=== PATIENT | female | born 2000 | race Caucasian/White ===

== ENCOUNTER 2019-06-24 17:30 | Inpatient (IN) ==
[2019-06-24 18:37] LABS: Basophils # (auto) 0.02 K/uL (0-0.2); Basophils % (auto) 0.3 %; Eosinophils # (auto) 0.02 K/uL (0-0.5); Eosinophils % (auto) 0.3 %; Hematocrit (blood only) 42.5 % (37-47); Hemoglobin 14.4 g/dL (12.0-16.0); Immature Granulocytes # (auto) 0.01 K/uL (0.00-0.02); Immature Granulocytes % (auto) 0.1 %; Lymphocytes # (auto) 2.55 K/uL (1.2-3.4); Mean Corpuscular Hemoglobin 31.5 pg (25-34); Mean Corpuscular Hgb Conc 33.9 g/dL (32-36); Mean Platelet Volume 9.8 fL (7.4-10.4); Monocytes # (auto) 0.38 K/uL (0.11-0.59); Monocytes % (auto) 5.5 %; Neutrophils # (auto) 3.92 K/uL (1.4-6.5); Neutrophils % (auto) 56.8 %; Platelet Count 294 K/uL (130-400); RDW Coefficient of Variation 12.8 % (11.5-14.5); RDW Standard Deviation 43.5 fL (36.4-46.3); Red Blood Count 4.57 M/uL (4.2-5.4)
[2019-06-24 18:48] LABS: Albumin Level 4.5 gm/dl (3.4-5.0); BUN Creatinine Ratio 11.9 (10-20); Calcium 9.7 mg/dl (8.5-10.1); Creatinine Clr Calc Pharmacy 78.3 ml/min; Est GFR (African American) 100.5; Est GFR (Non-African American) 86.7; Potassium 3.7 mmol/L (3.5-5.1)
[2019-06-24 18:51] LABS: Appearance Urine Clear (Clear); Bacteria Urine Automated Negative (Negative); Bilirubin Urine Negative (Negative); Blood Urine Negative (Negative); Color Urine Dark Yellow; Epithelial Cell Urine Auto >30 /lpf (0-5); Glucose Urine UA Negative (Negative); Ketones Urine Trace (Negative); Leukocyte Esterase Urine Trace (Negative); Nitrite Urine Negative (Negative); Protein Urine Negative (Negative); Specific Gravity Urine 1.027 (1.000-1.030); Urobilinogen Urine Negative (Negative)
[2019-06-24 18:58] LABS: Albumin Globulin Ratio 1.2 (0.9-2); Bilirubin,Total 0.7 mg/dl (0.2-1); Globulin 3.8 gm/dl (2.5-4.0); Thyroid Stimulating Hormone 0.483 uIu/ml (0.300-4.500); Total Protein 8.3 gm/dl (6.4-8.2)
[2019-06-24 19:01] LABS: Acetaminophen < 2 ug/ml (10-30); Salicylate < 1.7 mg/dl (2.8-20)
[2019-06-24 19:25] LABS: Amphetamines+Metham, Urine Neg (Neg); Barbiturates, Urine Neg (Neg); Benzodiazepine, Urine Neg (Neg); Cocaine, Urine Neg (Neg); MDMA (Ecstacy), Urine Neg (Neg); Methadone, Urine Neg (Neg); Opiate, Urine Neg (Neg); Phencyclidine, Urine Neg (Neg)
--- NOTE | 2019-06-24 21:33 | Emergency Department Note ---
Entered by Nuzhat Sinclair acting as a scribe for Mitch Brown DO History of Present Illness General Chief complaint: Mental Health Evaluation Stated complaint: MENTAL HEALTH EVAL Source: patient History of Present Illness Onset (ago): day(s) (4) Location: head (general) Pain Consistency: + constant Quality: + other (suicidal ideations) Associated symptoms: + denies other symptoms (homicidal ideations, auditory and visual hallucnations), + loss of appetite and + other (trouble sleeping) The patient is a 19 year old female who presents to the Emergency Room with complaints of constant suicidal ideations beginning 4 days ago. The patient denies a plan and states she has been trying to refrain from thinking about it as she is scared she may then carry through with the plan. She notes she is scared to be alone. The patient reports loss of appetite and trouble sleeping. She notes she missed classes yesterday.She reports previously suicidal ideations, but never to this extent. She denies homicidal ideations, and a uditory and visual hallucinations. She states she was at [facility] and was told to come to the ER by the crisis counselor. The patient reports a history of depression and anxiety for the past 5 years. She states she has been taking Zoloft. She notes she has been off of the medication due to the side effects she was experiencing. She notes she has an IUD. Home Medications Home Medications Medication Instructions Recorded Confirmed Type No Known Home Medications 06/24/19 06/24/19 History Allergies Allergy/AdvReac Type Severity Reaction Status Date / Time Sulfa (Sulfonamide Allergy Hives Verified 06/24/19 18:40 Antibiotics) Past Med/Surg History Medical History Anxiety and depression Surgical History No pertinent past surgical history Family History Other No pertinent family history Social History Preferred Language: Czech Communication Ability: Effective Beliefs That Will Affect Care: None Feels Safe at Home: Yes Smoking Status: Never smoker Review of Systems See HPI for pertinent positives & negatives. and A total of 10 systems reviewed and were otherwise negative Physical Exam Vital Signs Vital Signs - 24 hr 02/11/20 17:31 06/24/19 19:34 Temperature 36.9 C Temperature Source Oral Pulse Rate 91 H Pulse Rate [Finger] 86 Respiratory Rate 18 16 Respiratory Effort / Characteristics Non-Labored Respiratory Depth Normal Respiratory Pattern Regular Blood Pressure 133/73 Blood Pressure [Left Arm] 127/74 Blood Pressure Mean 93 Blood Pressure Mean [Left Arm] 91 Blood Pressure Position Sitting Blood Pressure Position [Left Arm] Sitting Pulse Oximetry 100 100 Oxygen Delivery Method Room Air Sepsis Recent Fever Within 48 Hours No Sepsis New/Unexplained Change in Mental Status No Sepsis Action Taken by Nursing No Action Required GENERAL: sitting up in bed, wearing blue scrubs, no acute distress, non-toxic EYE EXAM: normal conjunctiva OROPHARYNX: no exudate, no erythema, lips, buccal mucosa, and tongue normal and mucous membranes are moist NECK: supple, no nuchal rigidity, no adenopathy, non-tender LUNGS: Clear to auscultation. Normal chest wall mechanics HEART: no murmurs, S1 normal and S2 normal ABDOMEN: abdomen soft, non-tender, normo-active bowel sounds, no masses, no rebound or guarding. BACK: Back is symmetrical on inspection and there is no deformity, no midline tenderness, no CVA tenderness. SKIN: no rashes and no bruising UPPER EXTREMITIES: upper extremities are grossly normal. LOWER EXTREMITIES: No pitting edema. NEURO EXAM: Normal sensorium, cranial nerves II-XII grossly intact, normal speech, no gross weakness of arms, no gross weakness of legs. PSYCH: Admits to SI; states she is uncomfortable to be alone; denies any plan Course Course ED COURSE: Vital signs were reviewed and showed to be hypertensive situationally. The patients medical record was reviewed The above diagnostic studies were performed and reviewed. ED treatments and interventions as stated above. 1750: The patient was evaluated in room B10. A complete history and physical examination was performed. 0: Upon reevaluation, the patient is resting comfortably. I discussed my findings with the patient and she understands and agrees with the treatment plan. Based on the patients age, coexisting illnesses, exam and lab findings the decision to treat as an inpatient was made. The patient was transferred to [address] [place] [address]. The patient remained stable while under my care. The patient will be evaluated for further management. Administered Medications Hydroxyzine HCl (Vistaril) 50 mg PO HSZ PRN PRN Reason: Insomnia Stop: 07/24/19 21:49 Last Admin: 06/24/19 23:05 Dose: 50 mg Documented by: [id number] Medical Decision Making Differential Diagnosis Differential diagnoses considered include mood disorder, infection, hypoglycemia, electrolyte abnormalities, cardiac sources, intracerebral event, toxicologic, neurologic, as well as others. Medical Records Attestation: I reviewed the patient's medical records. Home Medications Current Medication List: was personally reviewed by me Laboratory Data Attestation: I reviewed the patient's lab results. Result diagrams: 06/24/19 18:13 06/24/19 18:13 Lab Results 06/24/19 06/24/19 06/24/19 Range/Units 18:13 18:13 18:13 WBC 6.90 (4.8-10.8) K/uL RBC 4.57 (4.2-5.4) M/uL Hgb 14.4 (12.0-16.0) g/dL Hct 42.5 (37-47) % MCV 93.0 (80-100) fL MCH 31.5 (25-34) pg MCHC 33.9 (32-36) g/dL RDW Std Deviation 43.5 (36.4-46.3) fL RDW Coeff of Javier 12.8 (11.5-14.5) % Plt Count 294 (130-400) K/uL MPV 9.8 (7.4-10.4) fL Immature Gran % (Auto) 0.1 % Neut % (Auto) 56.8 % Lymph % (Auto) 37.0 % [place] % (Auto) 5.5 % Eos % (Auto) 0.3 % Baso % (Auto) 0.3 % Immature Gran # (Auto) 0.01 (0.00-0.02) K/uL Neut # (Auto) 3.92 (1.4-6.5) K/uL Lymph # (Auto) 2.55 (1.2-3.4) K/uL [place] # (Auto) 0.38 (0.11-0.59) K/uL Eos # (Auto) 0.02 (0-0.5) K/uL Baso # (Auto) 0.02 (0-0.2) K/uL Sodium 136 (136-145) mmol/L Potassium 3.7 (3.5-5.1) mmol/L Chloride 106 (98-107) mmol/L Carbon Dioxide 24 (21-32) mmol/L Anion Gap 6.0 (3-11) BUN 11 (7-18) mg/dl Creatinine 0.94 (0.6-1.2) mg/dl Est Cr Clr Drug Dosing 78.3 ml/min Est GFR ( Amer) 100.5 Est GFR (Non-Af Amer) 86.7 BUN/Creatinine Ratio 11.9 (10-20) Glucose 81 (70-99) mg/dl Calcium 9.7 (8.5-10.1) mg/dl Total Bilirubin 0.7 (0.2-1) mg/dl AST 10 L (15-37) U/L ALT 12 (12-78) U/L Alkaline Phosphatase 66 (45-117) U/L Total Protein 8.3 H (6.4-8.2) gm/dl Albumin 4.5 (3.4-5.0) gm/dl Globulin 3.8 (2.5-4.0) gm/dl Albumin/Globulin Ratio 1.2 (0.9-2) TSH 0.483 (0.300-4.500) uIu/ml Urine Color Urine Appearance (Clear) Urine pH (4.5-7.5) Ur Specific [place] (1.000-1.030) Urine Protein (Negative) Urine Glucose (UA) (Negative) Urine Ketones (Negative) Urine Blood (Negative) Urine Nitrite (Negative) Urine Bilirubin (Negative) Urine Urobilinogen (Negative) Ur Leukocyte Esterase (Negative) Urine WBC (Auto) (0-5) /hpf Urine RBC (Auto) (0-4) /hpf U Hyaline Cast (Auto) (0-5) /lpf U Epithel Cells (Auto) (0-5) /lpf Urine Bacteria (Auto) (Negative) Salicylates < 1.7 L (2.8-20) mg/dl Urine Opiates Screen (Neg) Ur Methadone, Qual (Neg) Acetaminophen < 2 L (10-30) ug/ml Urine Barbiturates (Neg) Ur Phencyclidine (PCP) (Neg) U Amphetamin/Meth Scrn (Neg) MDMA (Ecstasy) Screen (Neg) U Benzodiazepines Scrn (Neg) Ur Cocaine Metabolite (Neg) U Marijuana (THC) Screen (Neg) Ethyl Alcohol mg/dL (0-3) mg/dl 06/24/19 06/24/19 06/24/19 Range/Units 18:13 18:15 18:15 WBC (4.8-10.8) K/uL RBC (4.2-5.4) M/uL Hgb (12.0-16.0) g/dL Hct (37-47) % MCV (80-100) fL MCH (25-34) pg MCHC (32-36) g/dL RDW Std Deviation (36.4-46.3) fL RDW Coeff of Javier (11.5-14.5) % Plt Count (130-400) K/uL MPV (7.4-10.4) fL Immature Gran % (Auto) % Neut % (Auto) % Lymph % (Auto) % [place] % (Auto) % Eos % (Auto) % Baso % (Auto) % Immature Gran # (Auto) (0.00-0.02) K/uL Neut # (Auto) (1.4-6.5) K/uL Lymph # (Auto) (1.2-3.4) K/uL [place] # (Auto) (0.11-0.59) K/uL Eos # (Auto) (0-0.5) K/uL Baso # (Auto) (0-0.2) K/uL Sodium (136-145) mmol/L Potassium (3.5-5.1) mmol/L Chloride (98-107) mmol/L Carbon Dioxide (21-32) mmol/L Anion Gap (3-11) BUN (7-18) mg/dl Creatinine (0.6-1.2) mg/dl Est Cr Clr Drug Dosing ml/min Est GFR ( Amer) Est GFR (Non-Af Amer) BUN/Creatinine Ratio (10-20) Glucose (70-99) mg/dl Calcium (8.5-10.1) mg/dl Total Bilirubin (0.2-1) mg/dl AST (15-37) U/L ALT (12-78) U/L Alkaline Phosphatase (45-117) U/L Total Protein (6.4-8.2) gm/dl Albumin (3.4-5.0) gm/dl Globulin (2.5-4.0) gm/dl Albumin/Globulin Ratio (0.9-2) TSH (0.300-4.500) uIu/ml Urine Color Dark Yellow Urine Appearance Clear (Clear) Urine pH 6.0 (4.5-7.5) Ur Specific [place] 1.027 (1.000-1.030) Urine Protein Negative (Negative) Urine Glucose (UA) Negative (Negative) Urine Ketones Trace H (Negative) Urine Blood Negative (Negative) Urine Nitrite Negative (Negative) Urine Bilirubin Negative (Negative) Urine Urobilinogen Negative (Negative) Ur Leukocyte Esterase Trace H (Negative) Urine WBC (Auto) 5-10 H (0-5) /hpf Urine RBC (Auto) 5-10 H (0-4) /hpf U Hyaline Cast (Auto) 5-10 H (0-5) /lpf U Epithel Cells (Auto) >30 H (0-5) /lpf Urine Bacteria (Auto) Negative (Negative) Salicylates (2.8-20) mg/dl Urine Opiates Screen Neg (Neg) Ur Methadone, Qual Neg (Neg) Acetaminophen (10-30) ug/ml Urine Barbiturates Neg (Neg) Ur Phencyclidine (PCP) Neg (Neg) U Amphetamin/Meth Scrn Neg (Neg) MDMA (Ecstasy) Screen Neg (Neg) U Benzodiazepines Scrn Neg (Neg) Ur Cocaine Metabolite Neg (Neg) U Marijuana (THC) Screen Pos H (Neg) Ethyl Alcohol mg/dL < 3.0 (0-3) mg/dl Blood Pressure Blood Pressure Findings: Elevated blood pressure Blood Pressure Disposition: further management by hospitalist DANICA Narrative Patient is a 19-year-old female who presents the ER notes that she has been depressed and anxious and having suicidal thoughts. She notes that she now feels unsafe at home. She was seen and evaluated by [facility] and referred and here for further evaluation and treatment. She notes that she refuses the think about a plan because if she does come up with one she knows she will do it. Labs show no significant leukocytosis or anemia. BMP along with LFTs bilirubin and TSH was unremarkable. UA was contaminated with multiple epithelial cells and consequently we will not treat at this time. Tox was negative. Marijuana was positive. Alcohol was negative. Patient was evaluated by her psychiatric direct care worker. She was evaluated by [facility] and was admitted for further evaluation. Impression & Plan Depression, Suicidal thoughts, Mood disorder Discharge Plan Visit Data *Final* Discharge Date/Time: 06/24/19 22:19 Chief Complaint: Mental Health Evaluation Stated Complaint: MENTAL HEALTH EVAL ED Provider: Mitch Brown Discharge Problem: Depression, Suicidal thoughts, Mood disorder Patient Disposition: Being Evaluated by Hospitalist Discharge Instructions Interventions: ED Discharge Assessment Last Done: 06/24/19 22:19 Discharge Problem: Depression Qualifiers: Depression Type: unspecified Qualified Code(s): F32.9 - Major depressive disorder, single episode, unspecified The scribe's documentation has been prepared under my direction and personally reviewed by me in its entirety. I confirm that the note above accurately reflects all work, treatment, procedures, and medical decision making performed by me.
[2019-06-24] MEDS ORDERED: SODIUM CHLORIDE 0.65% NA SOLN 45 ML (OCEAN) PRN (21:50)
[2019-06-24] MEDS ORDERED: BISMUTH SUBSALICYLATE PER ML OMNICELL CHARGE PO PRN (21:50)
[2019-06-24] MEDS ORDERED: ALUMINUM/MAGNESIUM SUSP 30 ML UDC PO PRN (21:50)
[2019-06-24] MEDS ORDERED: MAGNESIUM HYDROXIDE SUSP 30 ML UDC PO PRN (21:50)
[2019-06-24] MEDS ORDERED: ACETAMINOPHEN 325 MG TAB PO PRN (21:50)
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
[2019-06-25] MEDS: VENLAFAXINE HCL XR 37.5 MG CAPXR PO SCH (12:15)
[2019-06-26] MEDS: VENLAFAXINE HCL XR 37.5 MG CAPXR PO SCH (08:53)
--- NOTE | 2019-06-26 13:40 | Psychiatric Progress Note ---
Date of Service June 26, 2019 Impression / Recommendations Impression 19-year-old female admitted voluntarily for inpatient psychiatric treatment on 06/24/2019 after presenting to the ED with worsening depressive symptoms and suicidal ideation. Pt was referred by [facility], after she was seen for a crisis appointment. Pt was unable to contract for safety both during that visit and during mental health evaluation in the ED and was therefore referred for inpatient psychiatric hospitalization. Pt reports a history of depression and anxiety, but denies prior psychiatric hospitalization or suicide attempts. Working diagnoses include major depressive disorder, dysthymic disorder, bipolar II disorder, PTSD, and personality disorder. Will give diagnosis of depression NOS at this time and attempt to further clarify formal diagnosis. Pt does meet criteria for generalized anxiety disorder. Pt was agreeable with a trial of venlafaxine ER with titration as tolerated. Recommended monitoring for activation, flight of ideas, and increased goal directed behavior. During her hospitalization, patient will be encouraged to participate in group and recreational programming. Family meeting with mother tomorrow to discuss discharge and safety planning. Pt still requires outpatient psychiatric providers to ensure continued treatment on an outpatient basis after discharge. Inpatient psychiatric treatment is medically necessary, as patient is at risk of suicide if she is discharged prematurely without adequate mitigation of risk factors. (1) Suicidal thoughts: 06/25 - Admitted to a locked inpatient behavioral health unit, on q15 minute safety checks - Encourage medication initiation/adjustments as indicated - Encourage participation in group and recreational therapies - Gather collateral information from outpatient providers - Suggest family meeting to involve outpatient supports in safety planning - Arrange appropriate aftercare 06/26 - Pt reporting improvement in SI, but denies resolution (2) Depression: 06/25 - Will work with diagnosis of depression NOS - differential includes MDD, dysthymic disorder, bipolar II disorder, PTSD, personality disorder, and other possible mood disorder. - Attempt to gather collateral information from patient and outpatient supports to further clarify diagnosis - Reviewed risks, benefits, and potential side effects of antidepressant medications. Given physical and sexual side effects reported with two previous trials of SSRIs (fluoxetine and sertraline), we discussed trial of an SNRI. Pt reported preference for venlafaxine after reviewing options. Discussion regarding side effects included Black Box Warning for increased suicidality in child/adolescent population with initiation of an antidepressant medication. Discussed also included recommendation to monitor for increased activation, flight of ideas, and more goal directed behavior. - Will start 37.5mg of venlafaxine ER today, and titrate dose as tolerated - Encourage participation in group and recreational programming - Encourage development of healthy and effective coping strategies - Recommending family meeting involving outpatient supports to discuss discharge and safety planning - Refer for outpatient therapy and medication management 06/26 - Titrating venlafaxine to 75mg daily starting tomorrow morning - Continue to encourage group participation - Family meeting with mother tomorrow afternoon - Refer for outpatient psychiatric providers (3) Generalized anxiety disorder: 06/25 - Pt reports symptoms of anxiety consistent with generalized anxiety disorder - denying criteria for panic disorder - Encourage development of healthy and effective coping strategies - Hydroxyzine available as needed for acute anxiety 06/26 - Pt admits to ongoing anxiety, admits to utilizing prn hydroxyzine for acute anxiety during her stay - Continuing to encourage group programming and development of coping skills - Titrating venlafaxine to 75mg Risk Factors Assessment Do You Have Access To A Gun?: No Protective Factors Assessment Employed: No Interval History Identifying Information MORGAN SUNSHINE is a 19-year-old F who currently attends [employer] and lives with several roommates. Pt has a history of depression and anxiety, and was admitted on 06/24/19 21:51 on a 201 voluntary commitment for worsening depression and suicidal ideation. Pt denies specific plan, but was unable to contract for safety during mental health evaluation in the ED. Chief Complaint "Alright. Things are pretty good." Review of Systems Notes Constitutional: reports intermittent "shaking", believes it is related to anxiety Cardiovascular: denied Respiratory: denied Gastrointestinal: denied Neurological: denied Psychiatric: denies symptoms other than stated above Total of at least 10 systems reviewed, pertinent positives as above and in HPI. Sleep Information Total Hours of Sleep: 7.75 Meal Information Percent Meal Consumed - Breakfast: 75 Percent Meal Consumed - Lunch: 75 Percent Meal Consumed - Dinner: 75 Nutrition Comment: per meal log Subjective Subjective Patient was seen & assessed and interval progress reviewed with nursing and social work. Staff report the patient rated her mood a 7-8/10 and "anxious" last evening. She has been participating in group programming. Pt was seen today to assess progress since admission. She provides verbal consent to allow Devorah Velazquez PA-C to observe today's encounter. Pt states that she has been feeling "alright." Thus far, she states she has tolerated the initiation of venlafaxine. She does report feeling "shaky" intermittently last evening and this morning, but believes it is more related to anxiety than to medication side effects. Pt admits that her mood is "definitely better", but does endorse anxi ety. She states that to some extent she believes that it may be the unfamiliar environment. Pt admits that her suicidal thoughts are "better", but says "I definitely wouldn't say they're resolved." Pt reports desire to involve her mother in a family meeting to discuss safety and discharge planning. Pt denies other needs or concerns at this time. Physical Exam Psychiatric Orientation: alert, oriented x 3 and cooperative (and pleasant) Apperance: appropriately dressed, appropriately groomed and appeared stated age Eye Contact: good eye contact Motor Behavior: steady gait and station and no abnormal motor movements Speech: normal rate/rhythm/volume of speech Affect: + blunted affect (mildly subdued, but brighter overall from admission ) Mood: + anxious mood; no depressed mood ("better") Thought Process: goal directed thought process, clear/coherent thought process and thought association intact Thought Content: reality based without delusions and + hopelessness (intermittently, but with less intensity) Suicidal Thoughts: denies suicidal intent; + reports suicidal thoughts Reports ongoing SI, but states they are "better" overall Homicidal Thoughts: denies homicidal thoughts Hallucinations: no auditory hallucinations and no visual hallucinations Cognition: remote memory grossly intact, attention grossly intact and language grossly intact Insight: + fair insight Judgement: + fair judgement Vital Signs (Past 24 Hours) Last Vital Signs Temp 36.7 C 06/26/19 06:00 Pulse 58 L 06/26/19 06:00 Resp 16 06/26/19 06:00 BP 106/68 06/26/19 06:00 Pulse Ox 98 06/24/19 22:19 Results & Data ([facility]) Laboratory Results Laboratory Results - last 24 hr 06/24/19 18:15 POC Ur Test NEG Current Inpatient Medications Current Inpatient Medications: Current Inpatient Medications Acetaminophen (Tylenol) 650 mg PO Q4H PRN PRN Reason: Headache or Minor Fever Stop: 07/24/19 21:49 Al Hydrox/Mg Hydrox/Simethicone (Maalox) 30 ml PO Q4H PRN PRN Reason: GI Upset Stop: 03/12/20 21:49 Bismuth Subsalicylate (Kaopectate) 15 ml PO PRN PRN PRN Reason: Loose Stool Stop: 07/24/19 21:49 Hydroxyzine HCl (Vistaril) 50 mg PO HSZ PRN PRN Reason: Insomnia Stop: 07/24/19 21:49 Last Admin: 06/24/19 23:05 Dose: 50 mg Documented by: Hydroxyzine HCl (Vistaril) 25 mg PO Q4H PRN PRN Reason: Anxiety Stop: 07/24/19 21:49 Last Admin: 06/26/19 10:02 Dose: 25 mg Documented by: Magnesium Hydroxide (Milk Of Magnesia) 30 ml PO DAILY PRN PRN Reason: Constipation Stop: 07/24/19 21:49 Sodium Chloride ([place] Nasal) 1 - 2 sprays NA PRN PRN PRN Reason: Nasal Dryness/Congestion Stop: 07/24/19 21:49 Venlafaxine HCl (Effexor Extended Release) 37.5 mg PO QAM KATARZYNA Stop: 07/25/19 10:59 Last Admin: 06/26/19 08:53 Dose: 37.5 mg Documented by: Mental Health & Subst Abuse Tx Therapist Name of Therapist: Nichole Mckoy-Iman Law Date of Therapist Appointment: 07/16/19 Time of Therapist Appointment: 8:30am [facility] Name of [facility]: None Post Discharge Appointments Primary Care Physician Name Of Family Doctor: [facility] Primary Care Provider Appointment Comment: As needed Contact Information Discharge Discharge Address: [address] ([address]);[address] [place] [address],[place] (1) Depression Depression Type: unspecified Qualified Code(s): F32.9 - Major depressive disorder, single episode, unspecified
[2019-06-27] MEDS ORDERED: VENLAFAXINE HCL XR 75 MG CAPXR PO SCH (09:00)
[2019-06-27 13:54] LABS: Marijuana Quant, GCMS Urine 76 ng/mL (<5)
--- NOTE | 2019-06-27 14:35 | Discharge Summary ---
Date of Service June 27, 2019 History of Present Illness Marcelina Lucero is a 19-year-old female admitted voluntarily for inpatient psychiatric treatment on 06/24/2019 after presenting to the ED upon referral from [facility]. Pt states she was seen for a crisis appointment, where she reported worsening depression and suicidal ideation. Although patient denied specific plan, she was unable to contract for safety at the [facility] appointment or in the ED during mental health evaluation. Pt was cooperative with psychiatric evaluation, and provided verbal consent to allow Devorah Velazquez PA-C to observe today's encounter. Pt states that she has a history of depression and anxiety since age 12y/o, admitting that the onset of these symptoms is likely correlated to to her parents' separation. Pt states that she generally reaches out to supports when her depressive symptoms worsen, but as she does not presently have an outpatient therapist - she attended a [facility] crisis visit instead. Pt states that she "wasn't confident I wouldn't hurt myself if I was left alone", and was therefore recommended for inpatient psych iatric treatment. Pt denies history of suicide attempts in the past. Pt states that she had been noticing worsening depressive symptoms for the past 1-2 weeks. She reports symptoms of low mood, limited motivation, skipping classes, isolative behavior, crying spells, and increased desire to retreat to bed. She admits to intermittent hopelessness - states she has thoughts about once a week with the dialogue of "if things get bad enough, I could just end it." Pt states that these symptoms were exacerbated further by a unexpected break-up with her boyfriend on 06/21/2019. Pt also endorses racing worried thoughts on a regular basis, admitting a large portion of these thoughts are related to financial stressors as well as academic stress (despite achieving A-B grades since beginning college). Pt also admits to periods of increased energy/productivity which spans about 1-2 weeks a month. She states that she will have "spurts of energy" for several hours a day over the course of this ti me, but admits that she also experiences hopelessness and low mood during these days as well. She reports desire during these times to "change my appearance" - reporting during one of these periods she had gotten a nose piercing. She denies that any of these states were correlated with antidepressant medication trials. She denies flight of ideas, increased recklessness/destructive behaviors, or history of auditory or visual hallucinations. Pt admits to history of medication trials, having previously been prescribed fluoxetine and sertraline but was unable to tolerate both medications long-term. She receive psychiatric medication management and therapy in the past, but has not been seen regularly by prescribers since 07/2018. Pt denies HI, A/V hallucinations, paranoia, OCD, PTSD, eating disorder, and other specific psychiatric symptoms. Physical Exam Psychiatric Orientation: alert, oriented x 3 and cooperative Apperance: appropriately dressed, appropriately groomed and appeared stated age Eye Contact: good eye contact Motor Behavior: steady gait and station Speech: normal rate/rhythm/volume of speech Affect: euthymic affect "Much better now." Thought Process: goal directed thought process, linear/logical thought process and clear/coherent thought process Thought Content: reality based without delusions Suicidal Thoughts: denies suicidal thoughts Homicidal Thoughts: denies homicidal thoughts Hallucinations: no auditory hallucinations Cognition: recent memory grossly intact, remote memory grossly intact and language grossly intact Estimated Intelligence: + above average estimated intelligence Insight: good insight Judgement: good judgement Vital Signs (Past 24 Hours) Last Vital Signs Temp 36.6 C 06/27/19 06:49 Pulse 78 06/27/19 06:50 Resp 18 06/27/19 06:49 BP 96/66 L 06/27/19 06:50 Pulse Ox 98 06/24/19 22:19 Principal Diagnosis Depression Psychiatric Data During the course of hospitalization the patient was offered various modalities of psychiatric treatment and education. These included individual, group, activity and family interventions. In addition the patient was started on the antidepressant medication venlafaxine extended release at a dose of 75 mg daily. She indicated that she was tolerating this medication well and noted no side effects. During individual and group therapy the patient explored her feelings regarding her romantic disappointment, and noted that she had had other romantic disappointments in the past without having had a similar reaction. She said that she came to realize that the sudden, unexpected, and abrupt nature of the break-upwith her boyfriend saying things such as "there is no future" and "I do not love you" because of significant emotional dis-equilibration. The patient also notes that contributing to her distress is the fact that she has not been in the habit of sharing emotional distress with other people, even though she has a fairly extensive emotional support network, including her mother, other family members, and a number of friends. She worked on and developed a safety plan that emphasized the need for her to access her support network promptly when distressed. Also included in her community safety plan is to develop a relationship with an outpatient therapist. Patient convincingly reported that she was having no further thoughts of suicide, and eventually said that she is not certain that she ever had any suicidal intent, but was instead, looking for a way of expressing her degree of distress. The treatment team is in agreement that the patient is at this point sufficiently stable mentally and sufficiently competent mentally to safely continue psychiatric treatment on an outpatient basis, and the plan is to discharge the patient back to the community with arrangements for outpatient aftercare.. Day of Discharge Assessment On the day of discharge, the patient was found to be pleasant, and fully cooperative with the discharge evaluation. She reported that her mood had improved considerably subsequent to the admission, and said that during the hospitalization she was able to put her romantic disappointment in a context. Intellectually, she realizes that a relationship with someone who would break up so abruptly and so harshly was both doomed and dysfunctional. However, she was able to talk about the rapid and unexpected transition from "I love you" to "I do not love you and I want a break-up". The patient's affect brightened and reached euthymia. Her speech fluid, delivered to normal volume, and was fully spontaneous. Her thought processes demonstrated tight associations, and there is no evidence of any psychotic features and the patient's thought content. She also reports that she has never had any perceptual disturbances, such as hallucinations or delusions. Further, as noted above, the patient reports that that thoughts of suicide have completely resolved. Patient's judgment and insight are good and she is Transition of Care Transition Of Care Record: was reviewed with the patient Advance Directives Advance Directives Information Provided: Yes Advance Directives: No Living Will: No Power of Fur Repairer: No Advance Directives Reason:: Declines as Mental Health Visit. Risk Factors Assessment History of suicidal ideation. History of depression Male: No : Yes Do You Have Access To A Gun?: No Health Problems: No Mental Health Diagnoses: Yes Substance Use Disorders: No Previous Attempt: No Previous Psychiatric Hospitalization: No Hopelessness: No Smoker: No Protective Factors Assessment : No Responsible for Young Children: No Employed: No Stable Relationships: Yes Supportive Family: Yes Good Rapport with Provider: No Absence of Any Risk Factors Above: No Tobacco Cessation at Discharge Tobacco Cessation Medication Prescribed at Discharge: Not Applicable/Non-Smoker Antipsychotic Medications Patient has not been prescribed antipsychotic medications. Total Time Total Time Spent: Greater Than 30 Minutes Total Time Includes: Examination of the patient, Discharge Planning, Medication Reconciliation and Communication with other providers Discharge Data Lab Results 06/24/19 06/24/19 06/24/19 18:13 18:13 18:13 WBC 6.90 RBC 4.57 Hgb 14.4 Hct 42.5 MCV 93.0 MCH 31.5 MCHC 33.9 RDW Std Deviation 43.5 RDW Coeff of Javier 12.8 Plt Count 294 MPV 9.8 Immature Gran % (Auto) 0.1 Neut % (Auto) 56.8 Lymph % (Auto) 37.0 [place] % (Auto) 5.5 Eos % (Auto) 0.3 Baso % (Auto) 0.3 Immature Gran # (Auto) 0.01 Neut # (Auto) 3.92 Lymph # (Auto) 2.55 [place] # (Auto) 0.38 Eos # (Auto) 0.02 Baso # (Auto) 0.02 Sodium 136 Potassium 3.7 Chloride 106 Carbon Dioxide 24 Anion Gap 6.0 BUN 11 Creatinine 0.94 Est Cr Clr Drug Dosing 78.3 Est GFR ( Amer) 100.5 Est GFR (Non-Af Amer) 86.7 BUN/Creatinine Ratio 11.9 Glucose 81 Calcium 9.7 Total Bilirubin 0.7 AST 10 L ALT 12 Alkaline Phosphatase 66 Total Protein 8.3 H Albumin 4.5 Globulin 3.8 Albumin/Globulin Ratio 1.2 TSH 0.483 Urine Color Urine Appearance Urine pH Ur Specific [place] Urine Protein Urine Glucose (UA) Urine Ketones Urine Blood Urine Nitrite Urine Bilirubin Urine Urobilinogen Ur Leukocyte Esterase Urine WBC (Auto) Urine RBC (Auto) U Hyaline Cast (Auto) U Epithel Cells (Auto) Urine Bacteria (Auto) POC Ur Test Salicylates < 1.7 L Urine Opiates Screen Ur Methadone, Qual Acetaminophen < 2 L Urine Barbiturates Ur Phencyclidine (PCP) U Amphetamin/Meth Scrn MDMA (Ecstasy) Screen U Benzodiazepines Scrn Ur Cocaine Metabolite U Marijuana (THC) Screen U Marijuana THC Carboxy Drug Screen Comment Ethyl Alcohol mg/dL 06/24/19 06/24/19 06/24/19 18:13 18:15 18:15 WBC RBC Hgb Hct MCV MCH MCHC RDW Std Deviation RDW Coeff of Javier Plt Count MPV Immature Gran % (Auto) Neut % (Auto) Lymph % (Auto) [place] % (Auto) Eos % (Auto) Baso % (Auto) Immature Gran # (Auto) Neut # (Auto) Lymph # (Auto) [place] # (Auto) Eos # (Auto) Baso # (Auto) Sodium Potassium Chloride Carbon Dioxide Anion Gap BUN Creatinine Est Cr Clr Drug Dosing Est GFR ( Amer) Est GFR (Non-Af Amer) BUN/Creatinine Ratio Glucose Calcium Total Bilirubin AST ALT Alkaline Phosphatase Total Protein Albumin Globulin Albumin/Globulin Ratio TSH Urine Color Urine Appearance Urine pH Ur Specific [place] Urine Protein Urine Glucose (UA) Urine Ketones Urine Blood Urine Nitrite Urine Bilirubin Urine Urobilinogen Ur Leukocyte Esterase Urine WBC (Auto) Urine RBC (Auto) U Hyaline Cast (Auto) U Epithel Cells (Auto) Urine Bacteria (Auto) POC Ur Test NEG Salicylates Urine Opiates Screen Neg Ur Methadone, Qual Neg Acetaminophen Urine Barbiturates Neg Ur Phencyclidine (PCP) Neg U Amphetamin/Meth Scrn Neg MDMA (Ecstasy) Screen Neg U Benzodiazepines Scrn Neg Ur Cocaine Metabolite Neg U Marijuana (THC) Screen Pos H U Marijuana THC Carboxy Drug Screen Comment Ethyl Alcohol mg/dL < 3.0 06/24/19 06/24/19 18:15 18:15 WBC RBC Hgb Hct MCV MCH MCHC RDW Std Deviation RDW Coeff of Javier Plt Count MPV Immature Gran % (Auto) Neut % (Auto) Lymph % (Auto) [place] % (Auto) Eos % (Auto) Baso % (Auto) Immature Gran # (Auto) Neut # (Auto) Lymph # (Auto) [place] # (Auto) Eos # (Auto) Baso # (Auto) Sodium Potassium Chloride Carbon Dioxide Anion Gap BUN Creatinine Est Cr Clr Drug Dosing Est GFR ( Amer) Est GFR (Non-Af Amer) BUN/Creatinine Ratio Glucose Calcium Total Bilirubin AST ALT Alkaline Phosphatase Total Protein Albumin Globulin Albumin/Globulin Ratio TSH Urine Color Dark Yellow Urine Appearance Clear Urine pH 6.0 Ur Specific [place] 1.027 Urine Protein Negative Urine Glucose (UA) Negative Urine Ketones Trace H Urine Blood Negative Urine Nitrite Negative Urine Bilirubin Negative Urine Urobilinogen Negative Ur Leukocyte Esterase Trace H Urine WBC (Auto) 5-10 H Urine RBC (Auto) 5-10 H U Hyaline Cast (Auto) 5-10 H U Epithel Cells (Auto) >30 H Urine Bacteria (Auto) Negative POC Ur Test Salicylates Urine Opiates Screen Ur Methadone, Qual Acetaminophen Urine Barbiturates Ur Phencyclidine (PCP) U Amphetamin/Meth Scrn MDMA (Ecstasy) Screen U Benzodiazepines Scrn Ur Cocaine Metabolite U Marijuana (THC) Screen U Marijuana THC Carboxy 76 H Drug Screen Comment SEE NOTE Ethyl Alcohol mg/dL Hospital Course (1) Suicidal thoughts: 06/25 - Admitted to a locked inpatient behavioral health unit, on q15 minute safety checks - Encourage medication initiation/adjustments as indicated - Encourage participation in group and recreational therapies - Gather collateral information from outpatient providers - Suggest family meeting to involve outpatient supports in safety planning - Arrange appropriate aftercare 06/26 - Pt reporting improvement in SI, but denies resolution 06/27 -Today, the patient reports complete resolution of suicidal ideation. She is future oriented and has developed a community safety plan with which she is fully conversant. (2) Depression: 06/25 - Will work with diagnosis of depression NOS - differential includes MDD, dysthymic disorder, bipolar II disorder, PTSD, personality disorder, and other possible mood disorder. - Attempt to gather collateral information from patient and outpatient supports to further clarify diagnosis - Reviewed risks, benefits, and potential side effects of antidepressant medications. Given physical and sexual side effects reported with two previous trials of SSRIs (fluoxetine and sertraline), we discussed trial of an SNRI. Pt reported preference for venlafaxine after reviewing options. Discussion regarding side effects included Black Box Warning for increased suicidality in child/adolescent population with initiation of an antidepressant medication. Discussed also included recommendation to monitor for increased activation, flight of ideas, and more goal directed behavior. - Will start 37.5mg of venlafaxine ER today, and titrate dose as tolerated - Encourage participation in group and recreational programming - Encourage development of healthy and effective coping strategies - Recommending family meeting involving outpatient supports to discuss discharge and safety planning - Refer for outpatient therapy and medication management 06/26 - Titrating venlafaxine to 75mg daily starting tomorrow morning - Continue to encourage group participation - Family meeting with mother tomorrow afternoon - Refer for outpatient psychiatric providers 06/27 -Patient reports that she is tolerating venlafaxine 75 mg daily without any n oted side effects. Material risks and anticipated benefits of venlafaxine were reviewed with the patient, and she indicated understanding. -We advised the patient that it is perhaps likely that her outpatient provider may recommend increasing her dose of venlafaxine, depending upon her response and tolerance. (3) Generalized anxiety disorder: 06/25 - Pt reports symptoms of anxiety consistent with generalized anxiety disorder - denying criteria for panic disorder - Encourage development of healthy and effective coping strategies - Hydroxyzine available as needed for acute anxiety 06/26 - Pt admits to ongoing anxiety, admits to utilizing prn hydroxyzine for acute anxiety during her stay - Continuing to encourage group programming and development of coping skills - Titrating venlafaxine to 75mg 06/27 -The patient notes that she is less anxious. Hydroxyzine has been effective in managing anxiety episodes. Mental Health & Subst Abuse Tx Psychiatrist Name of Psychiatrist: Stone Goldstein Date of Appointment with Psychiatrist: 07/22/19 Time of Appointment with Psychiatrist: 2:30pm Psychiatric Appointment Comment: [address] [place] [address] Therapist Name of Therapist: Nichole Mckoy-Iman Law Date of Therapist Appointment: 07/16/19 Time of Therapist Appointment: 8:30am Therapy Appointment Comment: [address] [place] [address] Fish Net Stringer Name of Fish Net Stringer: None Post Discharge Appointments Primary Care Physician Name Of Family Doctor: [facility] Primary Care Provider Appointment Comment: As needed Smoking Cessation Counseling Tobacco Cessation Medication Prescribed at Discharge: Not Applicable/Non-Smoker Contact Information Discharge Discharge Address[address] [address] [place], [place] [address]CA (home);[address] [place] [address] Discharge Plan Discharge Items Patient Disposition: Home - Self-Care Reason For Visit: DEPRESSION Discharge Diagnosis: Depression Activity: Resume your previous activity Non-emergency contact: Psychiatrist and Therapist Call non-emergency contact if: you have any medication questions and your symptoms worsen Follow-up/Referrals: [facility] [Primary Care Provider] - Diet: Regular Addtl Attending Provider Instructions: SPECIAL CARE INSTRUCTIONS: 1. Follow through with your scheduled aftercare appointments. If unable to keep an appointment, please call to reschedule. 2. Take your medication only as prescribed. Medication should not be changed or stopped without the approval of your doctor. In the event of worsening symptoms or concerns about side effects, contact your doctor immediately. 3. Utilize new healthy coping skills, anger management skills, and stress management skills learned during your hospitalization. Journal feelings and process them with a support person. Identify stressors or situations that may result in relapse, deterioration or inappropriate behaviors and develop a plan to deal with those issues. 4. If your coping skills are ineffective and you are in crisis, contact your outpatient providers for direction. If unable to reach your providers, please call the CAN HELP LINE AT or go to the closest Emergency Room. 5. Avoid alcohol and un-prescribed drugs. 6. You have been provided with the Mental Health Advance Directives Pamphlet for your review. AFTERCARE APPOINTMENTS: * Please call your insurance company prior to your scheduled appointment to confirm your aftercare providers are covered. Take your insurance information to your appointments. WHO TO CALL AND WHEN: Medical Emergencies: For questions or emergencies related to your hospital stay, please contact the Inpatient Behavioral Health Unit at [phone]. A line ordering clinician is on-call 04/12 for the Behavioral Health Unit for emergencies At any time you feel your situation is an emergency, you may also call 911 immediately. Your Doctors Instructions noted above were prepared by provider Nicholas Mast MD. Pending Studies at Discharge: No Stand-Alone Forms: [facility], Smoking Cessation, Suicide Prevention Resources Medications and DC Order Prescriptions: New hydroxyzine HCl 25 mg Tablet 25 mg PO Q4H PRN (Reason: anxiety or sleep) Qty: 30 RF: 0 venlafaxine 75 mg Capsule,Extended Release 24hr 75 mg PO QAM Qty: 30 RF: 0 No Action No Known Home Medications RF: 0 Discharge Orders: Discharge Order (Routine); Ordered 06/27/19 Ordered By: Nicholas Mast Admission Data Admit Date/Time: 06/24/19 21:51 Attending Provider: Shanae Terrell Admit Provider: Trice Lovett Primary Care Provider: [facility] Other DC Date/Time DO NOT enter until pt leaves facility: 06/27/19 14:50 C[place] [address] D/C day mgmt > 30 min Patient Type Established Medical Decision Making Moderate Complexity Diagnoses Suicidal thoughts R45.851 Depression F32.9 Depression Type: unspecified Generalized anxiety disorder F41.1 Time Spent (min) 50
== END 2019-06-27 14:50 | disposition home or self-care (01) | DRG 881 ==
LOC: ED 17:30 → 3S 21:51